=== PATIENT | female | born 1990 | race Caucasian/White ===

== ENCOUNTER 2017-04-19 13:33 | Emergency (ER) | payer OTHER ==
[~2017-04-19] VITALS: Ht 172.7 cm; Wt 63.6 kg
[~2017-04-19 13:33] MED LIST: MOTR200T44 PO; PRENTAB43 PO; TYLE500T78 PO; ZOFR4SOL PO
[2017-04-19 13:39] VITALS: BP 162/96
[2017-04-19] MEDS ORDERED: PROAAER10 INH (16:13)
[2017-04-19] MEDS ORDERED: FLON1SPR (16:13)
[2017-04-19] MEDS ORDERED: DIFL150T PO (16:13)
[2017-04-19] MEDS ORDERED: CEFD300CAP FT (16:14)
== END 2017-04-19 16:23 | disposition home or self-care (01) ==
LOC: M ED 13:33
DX: J01.90 Acute sinusitis, unspecified (principal); J20.9 Acute bronchitis, unspecified; J45.909 Unspecified asthma, uncomplicated; Z79.899 Other long term (current) drug therapy; Z88.0 Allergy status to penicillin; Z88.8 Allergy status to other drugs, medicaments and biological substances

== ENCOUNTER → 2017-06-05 | Outpatient (CLI) | payer OTHER | LOC: M CARPUL 12:47 | DX: R06.02 Shortness of breath (principal) | CPT/HCPCS: 94010 ==

== ENCOUNTER 2017-12-05 18:07 | Outpatient (CLI) | payer OTHER | END 2017-12-05 20:00 | disposition home or self-care (01) | LOC: M LDO 18:07 | DX: O26.893 Other specified pregnancy related conditions, third trimester (principal); Z3A.33 33 weeks gestation of pregnancy; N89.8 Other specified noninflammatory disorders of vagina | CPT/HCPCS: 59025 ==

== ENCOUNTER 2017-12-23 17:36 | Outpatient (CLI) | payer OTHER | END 2017-12-23 18:34 | disposition home or self-care (01) | LOC: M LDO 17:36 | DX: O47.03 False labor before 37 completed weeks of gestation, third trimester (principal); Z3A.35 35 weeks gestation of pregnancy | CPT/HCPCS: 59025 ==

== ENCOUNTER 2017-12-25 09:40 | Outpatient (CLI) | payer OTHER ==
[2017-12-25] MEDS ORDERED: LR 1,000 ML IV (10:30)
[2017-12-25] MEDS: BETAMETHASONE SOLUSPAN 6MG/ML INJ 5ML (J0702) IM (10:53)
[2017-12-25] MEDS: LR 800 ML IV (10:59)
== END 2017-12-25 16:20 | disposition home or self-care (01) ==
LOC: M LDO 09:40
DX: O26.893 Other specified pregnancy related conditions, third trimester (principal); N89.8 Other specified noninflammatory disorders of vagina; O99.53 Diseases of the respiratory system complicating the puerperium; J45.901 Unspecified asthma with (acute) exacerbation; O99.825 Streptococcus B carrier state complicating the puerperium; O99.820 Streptococcus B carrier state complicating pregnancy; O35.1XX1 Maternal care for (suspected) chromosomal abnormality in fetus, fetus 1; Q07.00 Arnold-Chiari syndrome without spina bifida or hydrocephalus; O62.3 Precipitate labor; Z3A.35 35 weeks gestation of pregnancy
CPT/HCPCS: J0702

== ENCOUNTER 2017-12-26 11:15 | Outpatient (CLI) | payer OTHER ==
[2017-12-26] MEDS: BETAMETHASONE SOLUSPAN 6MG/ML INJ 5ML (J0702) IM (11:55)
== END 2017-12-26 12:05 | disposition home or self-care (01) ==
LOC: M LDO 11:15
DX: O47.03 False labor before 37 completed weeks of gestation, third trimester (principal); Z3A.36 36 weeks gestation of pregnancy
CPT/HCPCS: J0702

== ENCOUNTER 2017-12-29 05:16 | Inpatient (IN) | payer OTHER ==
[2017-12-29] MEDS: LACTATED RINGER'S 1000 ML IV (07:14)
[2017-12-29] MEDS: VANCOMYCIN HCL 1,000 MG, VIAL MATE ADAPTER 1 EACH in D5W 250 ML IV (07:14)
[2017-12-29 07:31] LABS: HEMATOCRIT 40.1 % (36.0-47.0); HEMOGLOBIN 13.7 g/dl (12.0-15.5); MEAN CORPUSCULAR HEMOGLOBIN 28.2 pg (27.0-33.0); MEAN CORPUSCULAR HGB CONC 34.2 g/dl (32.0-36.5); MEAN CORPUSCULAR VOLUME 82.5 fl (80.0-96.0); PLATELET COUNT, AUTOMATED 408 10^3/uL (150-450); RED BLOOD COUNT 4.86 10^6/uL (4.00-5.40); RED CELL DISTRIBUTION WIDTH 12.8 % (11.5-14.5); WHITE BLOOD COUNT 10.1 10^3/uL (4.0-10.0)
[2017-12-29] MEDS: OXYTOCIN DRIP 30 UNITS in APPROPRIATE DILUENT 1 EA IV ×2 (08:08→16:30)
[2017-12-29 08:45] LABS: HBSAG L&D NEGATIVE (NEGATIVE)
[2017-12-29] MEDS: LR 1,000 ML IV (11:22)
[2017-12-29] MEDS ORDERED: FENTANYL 2MCG/ML ROPIVACAINE 0.2% IN 0.9% NACL 200ML IVBAG As Ordered (15:39)
[2017-12-29] MEDS ORDERED: RHOGAM 300 MCG (1500 IU) INJ (J2790) IM (16:30)
[2017-12-29] MEDS ORDERED: DIBUCAINE 1% OINTMENT 30GM TOP (16:30)
[2017-12-29] MEDS ORDERED: REFRIGERATOR IV KEYS XX (16:30)
[2017-12-29] MEDS ORDERED: ACETAMINOPHEN TAB 650MG DOSE (2X325MG) PO (16:30)
[2017-12-29] MEDS ORDERED: EPIDURAL/PCA KEYS XX (16:30)
[2017-12-29] MEDS ORDERED: MEASLES,MUMPS,RUBELLA VACCINE INJ (MMR-II) (90707) SC (16:30)
[2017-12-29] MEDS: FENTANYL/ROPIVACAINE/NACL BAG 200 ML EPIDURAL (16:30)
[2017-12-29] MEDS ORDERED: EPIDURAL COMMENT XX (16:30)
[2017-12-29] MEDS ORDERED: NALOXONE INJ 0.4 MG/1 ML VIAL (J2310) IV (16:30)
[2017-12-29] MEDS ORDERED: METOCLOPRAMIDE INJ 10MG/2ML VIAL (J2765) IV (16:30)
[2017-12-29] MEDS ORDERED: diphenhydrAMINE INJ 50MG/ML VIAL (J1200) IV (16:30)
[2017-12-29] MEDS ORDERED: ONDANSETRON 4MG/2ML VIAL (J2405) IV (16:30)
[2017-12-29] MEDS: IBUPROFEN 800 MG TAB PO (16:41)
[2017-12-29] MEDS: DOCUSATE SODIUM 100 MG CAP PO (20:39)
[2017-12-30] MEDS: PRENATAL VITAMINS CHEWABLE TABLET PO (09:18)
[2017-12-30] MEDS: DOCUSATE SODIUM 100 MG CAP PO (09:18)
== END 2017-12-30 12:00 | disposition home or self-care (01) | DRG 775 ==
LOC: M LDO 05:16 → M LDI 06:57 → M OBS 17:54
PROVIDERS: Obstetrics & Gynecology
PROC: 10E0XZZ Delivery of Products of Conception, External Approach (ICD-10-PCS; principal; 2017-12-29)
DX: O32.6XX0 Maternal care for compound presentation, not applicable or unspecified (principal); O99.824 Streptococcus B carrier state complicating childbirth; O69.81X0 Labor and delivery complicated by cord around neck, without compression, not applicable or unspecified; O69.2XX0 Labor and delivery complicated by other cord entanglement, with compression, not applicable or unspecified; Z3A.36 36 weeks gestation of pregnancy; Z37.0 Single live birth

== ENCOUNTER → 2018-09-02 | Outpatient (REF) | payer OTHER ==
[~2018-09-02] MED LIST changes: +CEFD300CAP FT; +COLA100C5 PO; +DIFL150T PO; +FLON1SPR; +IBUP-1114 PO; +MAPA500T2 PO; +PRENTAB9 PO; +PROAAER10 INH
== END ==
LOC: M SFHCLERA 10:52
PROVIDERS: ATTEND Physician Assistant
DX: R50.9 Fever, unspecified (principal)

== ENCOUNTER 2018-12-11 07:37 | Emergency (ER) | payer OTHER ==
[~2018-12-11] VITALS: Ht 172.7 cm; Wt 67.8 kg
[2018-12-11 07:37] VITALS: BP 156/98
[2018-12-11] MEDS ORDERED: ERYT1OIN26 OP (08:40)
== END 2018-12-11 09:04 | disposition home or self-care (01) ==
LOC: M ED 07:37
DX: H10.9 Unspecified conjunctivitis (principal); Z88.8 Allergy status to other drugs, medicaments and biological substances; Z88.0 Allergy status to penicillin

== ENCOUNTER 2019-03-31 09:22 | Emergency (ER) | payer OTHER ==
[~2019-03-31] VITALS: Ht 172.7 cm; Wt 67.1 kg
[~2019-03-31 09:22] MED LIST changes: +ERYT1OIN26 OP
[2019-03-31 10:23] LABS: BASO # 0.1 10^3/uL (0.0-0.2); BASO % 0.6 % (0.0-1.0); EOS # 0.1 10^3/uL (0.0-0.5); EOS % 1.4 % (0.0-3.0); HEMATOCRIT 40.4 % (36.0-47.0); HEMOGLOBIN 13.6 g/dl (12.0-15.5); LYMPH # 2.1 10^3/uL (1.5-5.0); LYMPH % 26.2 % (24.0-44.0); MEAN CORPUSCULAR HEMOGLOBIN 29.1 pg (27.0-33.0); MEAN CORPUSCULAR HGB CONC 33.7 g/dl (32.0-36.5); MEAN CORPUSCULAR VOLUME 86.5 fl (80.0-96.0); MONO # 0.4 10^3/uL (0.0-0.8); MONO % 5.5 % (0.0-5.0); NEUTROPHILS # 5.3 10^3/uL (1.5-8.5); NEUTROPHILS % 65.9 % (36.0-66.0); PLATELET COUNT, AUTOMATED 402 10^3/uL (150-450); RED BLOOD COUNT 4.67 10^6/uL (4.00-5.40)
--- NOTE | 2019-03-31 11:23 | REP ---
Clinical: Vaginal bleeding for dating and viability. Technique: Transabdominal first trimester obstetrical ultrasound with color Doppler evaluation. Findings: A single live early intrauterine is identified. Gestational sac with yolk sac and pole noted. CRL of 6 mm corresponds to 6 weeks 3 days gestational age with estimated date of delivery 11/21/2019. heart rate equals 128 beats per minute. No gross abnormalities are identified. Left ovarian cyst compatible with corpus luteum. Impression: 1. Single live intrauterine at 6 weeks 3 days gestational age. 2. No gross abnormalities are identified. 3. Complete anatomical assessment should be performed at 19-20 weeks. Electronically Signed by Norm Gottlieb MD 03/31/2019 11:14 A
[2019-03-31 11:53] LABS: CHLAMYDIA DNA AMPLIFICATION NEGATIVE (NEGATIVE); GC DNA AMPLIFICATION NEGATIVE (NEGATIVE)
[2019-03-31] MEDS ORDERED: PREN29TA4 PO (12:06)
[2019-03-31 12:14] VITALS: BP 100/77
[2019-03-31 13:25] LABS: CHLAMYDIA DNA AMPLIFICATION NEGATIVE (NEGATIVE); GC DNA AMPLIFICATION NEGATIVE (NEGATIVE)
== END 2019-03-31 12:31 | disposition home or self-care (01) ==
LOC: M ED 09:22
DX: O26.891 Other specified pregnancy related conditions, first trimester (principal); R10.2 Pelvic and perineal pain; Z3A.01 Less than 8 weeks gestation of pregnancy; Z88.0 Allergy status to penicillin

== ENCOUNTER 2019-06-15 17:46 | Inpatient (IN) | payer OTHER ==
[~2019-06-15] VITALS: Ht 172.7 cm; Wt 63.6 kg
[~2019-06-15 17:46] MED LIST changes: +PREN29TA4 PO
[2019-06-15 18:37] LABS: BASO % 0.3 % (0.0-1.0); EOS # 0.1 10^3/uL (0.0-0.5); EOS % 0.5 % (0.0-3.0); HEMATOCRIT 34.5 % (36.0-47.0); LYMPH # 2.5 10^3/uL (1.5-5.0); MEAN CORPUSCULAR HGB CONC 34.8 g/dl (32.0-36.5); MEAN CORPUSCULAR VOLUME 83.3 fl (80.0-96.0); MONO # 0.7 10^3/uL (0.0-0.8); MONO % 4.2 % (0.0-5.0); NEUTROPHILS # 12.3 10^3/uL (1.5-8.5); NEUTROPHILS % 78.3 % (36.0-66.0); PLATELET COUNT, AUTOMATED 345 10^3/uL (150-450); RED BLOOD COUNT 4.14 10^6/uL (4.00-5.40); WHITE BLOOD COUNT 15.7 10^3/uL (4.0-10.0)
[2019-06-15] MEDS ORDERED: PREN29TA4 PO (19:15)
[2019-06-15 19:36] LABS: ALBUMIN 2.9 GM/DL (3.2-5.2); ALT/SGPT 13 U/L (12-78); BILIRUBIN,DIRECT < 0.1 MG/DL (0.0-0.2); BILIRUBIN,TOTAL 0.2 MG/DL (0.2-1.0); BLOOD UREA NITROGEN 5 MG/DL (7-18); CALCIUM LEVEL 8.4 MG/DL (8.5-10.1); CARBON DIOXIDE LEVEL 26 MEQ/L (21-32); CHLORIDE LEVEL 104 MEQ/L (98-107); CREATININE FOR GFR 0.55 MG/DL (0.55-1.30); GLOMERULAR FILTRATION RATE > 60.0 (>60); GLUCOSE, FASTING 88 MG/DL (70-100); HCG, SERUM QUANTITATIVE 49424 MIU/ML; POTASSIUM SERUM 3.4 MEQ/L (3.5-5.1); SODIUM LEVEL 139 MEQ/L (136-145); TOTAL PROTEIN 6.3 GM/DL (6.4-8.2)
--- NOTE | 2019-06-15 19:44 | REPVR ---
PROCEDURE INFORMATION: Exam: US , Limited Exam date and time: 06/15/2019 6:46 PM Age: 28 years old Clinical indication: Lmp or gestational age (in weeks): 17wks; Leakage of amniotic fluid; TECHNIQUE: Imaging protocol: Real-time ultrasound of the maternal uterus with image documentation. Exam focused on the clinical indication. COMPARISON: DC - 1ST TRIMESTER US 03/31/2019 11:03:54 AM FINDINGS: GESTATION: Gestation: There is a single live intrauterine . Heart rate: 168 bpm Presentation: Breech Placenta: The location of the placenta is anterior and above the lower uterine segment. Amniotic fluid: The amniotic fluid index is 1.1 cm, which is abnormally decreased. DOPPLER: Umbilical artery Doppler: The umbilical arterial spectral waveform is normal in appearance with a peak systolic velocity of 25.8 cm/s, end diastolic velocity of 9.2 cm/s, resistive index of 0.64, and systolic velocity to diastolic velocity ratio of 2.8. MATERNAL: Cervix: Fluid is seen in the endocervical canal and around the external os of the cervix. The cervix measures 3.3 cm in length and is closed. IMPRESSION: Single live intrauterine with a breech presentation and severe oligohydramnios (DAE = 1.1 cm). Electronically signed by: Aime Barakat On 06/15/2019 19:44:13 PM
[2019-06-15] MEDS ORDERED: ACETAMINOPHEN 325 MG TAB As Ordered ONE (19:50)
[2019-06-15] MEDS ORDERED: ACETAMINOPHEN TAB 650MG DOSE (2X325MG) PO ONE (20:00)
[2019-06-15 21:19] VITALS: BP 114/76
--- NOTE | 2019-06-16 01:15 | HPEPDOC ---
Obstetrical History & Physical General Date of Admission Jun 15, 2019 at 19:48 History of Present Illness Radha is a 28yo with SIUP at 17w6d by lmp who presented to the ED the evening of 06/15 for loss of fluid from the vagina at 1700. She states that it felt like her water broke. She notes that she was seen at [facility] yesterday for severe leg cramps and she was found to be hypokalemic and given a potassium drink. She had some mucousy discharge earlier in the day and lower abdominal cramping. Other than that, she has felt well. No fevers/chills/nausea/vomiting/dysuria. Chief Complaint: LOF, pre-term Information Provided By: Patient Care Care: Good Care Dating Final EDC: Nov 20, 2019 Final EDC by: LMP Antepartum Course Diagnos(e)s History of prior pre-term delivery at 36w5d, declined [facility] Past Medical History Past Obstetrical History : Past Obstetrical History: Multigravida (History of two term svds and one 36w5d . 1 sab.) [employer] History: No pertinent history Past Medical History Medical History benign Surgical History: Appendectomy Social History Marital Status: Family situation: Spouse/partner home Psychosocial History: No pertinent psych hx * Smoker: non-smoker Alcohol: Denies Drugs: denies Allergies Coded Allergies: Penicillins (Verified Allergy, Severe, rash and swelling, 06/15/19) Medications Scheduled Prenat 115/Iron Fum/Folic/Dss ( 19 Tablet) 1 Each Tablet, 1 TAB PO DAILY Physical Examination Physical Examination GENERAL: Alert and oriented times three. ABDOMEN: Gravid and non-tender to touch. EXTREMITIES: No edema of BLE SSE performed by Dr. Bangura in the ED on presentation- he reports observing clear fluid pooled in the vagina that immediately turned nitrazine blue, no vaginal bleeding, cervix visually closed and high Vital Signs/I&O Vital Signs Date Time Temp Pulse Resp B/P (MAP) Pulse Ox O2 Delivery O2 Flow Rate FiO2 06/15/19 21:19 98.7 67 18 114/76 (89) 06/15/19 20:33 97 06/15/19 17:47 Room Air Laboratory Data 24H LABS Laboratory Tests 2 06/15/19 18:23: Immature Granulocyte % (Auto) 0.7, Neutrophils (%) (Auto) 78.3H, Lymphocytes (%) (Auto) 16.0L, Monocytes (%) (Auto) 4.2, Eosinophils (%) (Auto) 0.5, Basophils (%) (Auto) 0.3, Neutrophils # (Auto) 12.3H, Lymphocytes # (Auto) 2.5, Monocytes # (Auto) 0.7, Eosinophils # (Auto) 0.1, Basophils # (Auto) 0.0, Nucleated Red Blood Cells % (auto) 0.0, Anion Gap 9, Glomerular Filtration Rate > 60.0, Calcium Level 8.4L, Total Bilirubin 0.2, Direct Bilirubin < 0.1, Aspartate Amino Transf (AST/SGOT) 14, Alanine Aminotransferase (ALT/SGPT) 13, Alkaline Phosphatase 77, Total Protein 6.3L, Albumin 2.9L, Albumin/Globulin Ratio 0.85L, Human Chorionic Gonadotropin, Quant [id number] CBC/BMP Laboratory Tests 06/15/19 18:23 Pertinent Laboratoy Data Blood Type: A+ RBC Antibody Screen: Negative Other Ultrasounds TVUS 06/25/2019 FINDINGS: GESTATION: Gestation: There is a single live intrauterine . Heart rate: 168 bpm Presentation: Breech Placenta: The location of the placenta is anterior and above the lower uterine segment. Amniotic fluid: The amniotic fluid index is 1.1 cm, which is abnormally decreased. DOPPLER: Umbilical artery Doppler: The umbilical arterial spectral waveform is normal in appearance with a peak systolic velocity of 25.8 cm/s, end diastolic velocity of 9.2 cm/s, resistive index of 0.64, and systolic velocity to diastolic velocity ratio of 2.8. MATERNAL: Cervix: Fluid is seen in the endocervical canal and around the external os of the cervix. The cervix measures 3.3 cm in length and is closed. IMPRESSION: Single live intrauterine with a breech presentation and severe oligohydramnios (DAE = 1.1 cm). Assessment/Plan Assessment Radha is a 28yo with SIUP at 17w6d by lmp with pre-viable PPROM. Posit rosario nitrazine, pooling of clear fluid in the vagina, and severe oligohydramnios noted on ultrasound. Fetus is breech and has +FCA. Vitals wnl, otherwise benign exam. No evidence of infection. No vaginal bleeding. Patient is not in labor, cervical length > 3cm. Rh positive. Plan I discussed the diagnosis of pre-viable PPROM and prognosis with Radha at length. She was extremely tearful and had many questions. I reassured her that this is not related to anything that she did. We discussed the possibility of low-lying undetectable infection as cause. I explained that since her membranes are ruptured, she will most likely progress into labor. She understands that with rupture of membranes, the fetus will no longer be able to gain lung maturity and that this is not compatible with life. I discussed that since there is still a heart rate, we cannot proceed with induction of labor per [employer] regulations. It may be possible for her to seek care in a facility where they would induce her regardless, but this would likely come with an [id number] cost to the patient. However, if she develops evidence of infection or life- threatening bleeding, we would at that point pursue IOL. Or, if at some point there is absent cardiac activity, we could then proceed with IOL. At this point in time, she is comfortable with my recommendation for inpatient observation with expectant management. Diet: regular Vitals q4hr CBC qam Saline lock IV Clergy consult if patient desires If no progression into labor overnight, will possibly move patient to antepartum milan in the morning MD Shruthi Luke Katrina D MD Jun 16, 2019 00:41
[2019-06-16 03:56] VITALS: BP 94/53
[2019-06-16 08:05] VITALS: BP 110/73
[2019-06-16 12:03] VITALS: BP 118/69
[2019-06-16] MEDS: LR 1,000 ML IV SCH ×2 (13:53→21:45)
[2019-06-16 15:48] VITALS: BP 99/54
[2019-06-16 15:49] VITALS: BP 83/49
[2019-06-16 15:51] VITALS: BP 102/56
[2019-06-16] MEDS: ACETAMINOPHEN TAB 650MG DOSE (2X325MG) PO PRN (18:51)
--- NOTE | 2019-06-16 21:31 | IPN ---
DATE: 06/16/2019 This lady is a 28-year-old, 5, para 2, L3 who had spontaneous rupture of membranes at 17 weeks and 6 days. She was not having any contractions and no vaginal bleeding but she occasionally had intermittent severe leg cramps. She was found to be hypokalemic and given potassium. When reviewing here, she was found to have documented spontaneous rupture of membranes, afebrile. Her blood pressure 114/76, respirations 18, pulse 67, temperature is 98.7. Her CBC indicates a white count of 15.7, hemoglobin 12.0, hematocrit 34.5. Platelets were normal at 345. The plan of management at the present time was to be conservative. heart is present. She was afebrile. White count was within normal limits for a patient. In reviewing this patient's history with the patient, we established that there was a heart, she was having some bloody discharge which was probably cervical dilatation related, her temperature was 98.3, blood pressure 102/56 and pulse was 69. Lab values were ordered for tomorrow morning. Ultrasound history was a live IUP in breech presentation with oligohydramnios with an DAE of 1.1. Placenta was anterior and above the lower segment. Urine clean catch is pending. We had a lengthy discussion with the patient regarding ongoing care. She understands that while there is a heart present we are unable to terminate the . However, should she have an elevated white count, a fever, or suggestions of chorioamnionitis, then we can implement medical indications for assisting in vaginal delivery. We discussed the social issues of her three children at home and what to say to the 5-year-old in order to relieve the burden on the 5-year-old that it is her fault. We also highly recommended that she move to a area where she can be in a more quiet zone with less activity then in labor and delivery. Also, her children can come and visit and see that mother is not abandoning them but is in hospital for medical issues. In regards to disposition of the fetus at delivery, the options available are to allow the hospital to dispose of the remains or she can call a private home and make arrangements, although these are long-term. Presently, she is afebrile, asymptomatic. She has not done anything in the last 12-24 hours and it is safe to transfer her to and monitor her vital signs in a timely fashion. Our trigger point is an elevated temperature and elevated white count. She has a CBC booked for 0600 hours tomorrow morning. The patient and expressed understanding of the plan of care. 40 minutes. All questions were answered.
[2019-06-17] VITALS: BP 91/54
[2019-06-17 06:30] VITALS: BP 112/62
[2019-06-17 07:50] LABS: HEMATOCRIT 35.5 % (36.0-47.0); HEMOGLOBIN 11.8 g/dl (12.0-15.5); MEAN CORPUSCULAR HEMOGLOBIN 28.4 pg (27.0-33.0); MEAN CORPUSCULAR HGB CONC 33.2 g/dl (32.0-36.5); MEAN CORPUSCULAR VOLUME 85.3 fl (80.0-96.0); PLATELET COUNT, AUTOMATED 316 10^3/uL (150-450); RED BLOOD COUNT 4.16 10^6/uL (4.00-5.40); WHITE BLOOD COUNT 18.4 10^3/uL (4.0-10.0)
--- NOTE | 2019-06-17 11:34 | IPN ---
DATE: 06/17/2019 This lady was admitted with a history of spontaneous rupture of membranes at 16 weeks and 5 days. She had a workup with an ultrasound showing that there was oligohydramnios, breech presentation. heart was present. She had a white count at 15.5 and normal temperature, normal blood pressures. This morning she is feeling well. She has some discharge. No evidence of active contractions. She is having a few cramps, afebrile and normotensive at the present time. Again we reviewed the plan of care, offered her to go home. However, she is concerned about having three children at home and inability to cope emotionally at the present time with a potential loss and the three children at home. Also she is concerned about what size the baby would be and we iterated to her that it is going to be less than 500 grams probably somewhere in 250 range and would be in effect similar to having a spontaneous miscarriage. In any case the patient seems to be more comfortable waiting it out here and again re-iterated unless she has a fever, elevated white count and/or no heart and we will have to comply with conservative management at the present time. The patient appears satisfied with that, expressed understanding of the plan of care.
[2019-06-17] MEDS: ACETAMINOPHEN TAB 650MG DOSE (2X325MG) PO PRN ×2 (14:30→22:48)
[2019-06-17 17:00] VITALS: BP 100/61
[2019-06-17 22:15] VITALS: BP 96/53
[2019-06-18] VITALS (11 sets, daily range): BP systolic 84–105; BP diastolic 49–60
[2019-06-18 06:37] LABS: HEMATOCRIT 34.6 % (36.0-47.0); HEMOGLOBIN 11.8 g/dl (12.0-15.5); MEAN CORPUSCULAR HEMOGLOBIN 28.8 pg (27.0-33.0); MEAN CORPUSCULAR HGB CONC 34.1 g/dl (32.0-36.5); MEAN CORPUSCULAR VOLUME 84.4 fl (80.0-96.0); PLATELET COUNT, AUTOMATED 318 10^3/uL (150-450); WHITE BLOOD COUNT 16.7 10^3/uL (4.0-10.0)
--- NOTE | 2019-06-18 06:48 | IPNPDOC ---
Text Note Date of Service The patient was seen on 06/18/19. NOTE patient is a 28yo with SIUP at 18+1w gestation admitted for PPROM HD #3. She had chills and sweats overnight. She reports feeling ache and cramping. Not feeling well in general. Continues to feel LOF. denies vaginal bleeding. patient had tylenol when she had fever. vitals: reviewed, hypotensive, HR: 60's-80's, Tmax: 100.4 at 22:50 laying in bed, NAD, aox4 cta s w/r/r s1s2 s m/g/c abd: nd, soft, mild tenderness to palpation over fundus le: no edema/erythema/tenderness skin warm to touch taus: SIUP, no fluids present, hr: 140's cbc: pending a/p patient is @ 18+1wks with PPROM showing s/s of infection. get CBC this AM. Discussed with patient that she is showing s/s of infection. fetus continues to have heart beat. It is unlikely that the amniotic sac closes over and allows for a viable to progress. At this point, due showing s/s of infection I recommend moving forward with induction of labor for chorioamnionitis. Patient expresses understanding and agrees. Transfer patient to L&D for induction of labor. Audi MARRERO, I+O VSAudi, I+O Laboratory Tests 06/17/19 07:03 06/18/19 06:16 Vital Signs Date Time Temp Pulse Resp B/P (MAP) Pulse Ox O2 Delivery O2 Flow Rate FiO2 06/18/19 05:30 99.9 81 18 97/53 (68) 97 Room Air NIKA JOAQUIN DO Jun 18, 2019 06:48
[2019-06-18 06:58] LABS: BLOOD UREA NITROGEN 3 MG/DL (7-18); CALCIUM LEVEL 8.6 MG/DL (8.5-10.1); CARBON DIOXIDE LEVEL 22 MEQ/L (21-32); CHLORIDE LEVEL 107 MEQ/L (98-107); CREATININE FOR GFR 0.48 MG/DL (0.55-1.30); GLOMERULAR FILTRATION RATE > 60.0 (>60); GLUCOSE, FASTING 76 MG/DL (70-100); POTASSIUM SERUM 3.8 MEQ/L (3.5-5.1); SODIUM LEVEL 138 MEQ/L (136-145)
[2019-06-18] MEDS ORDERED: VANCOMYCIN HCL 1,000 MG in IV FLUID PLACE HOLDER 1 EA IV SCH (08:00)
[2019-06-18 08:12] LABS: BASO % 0.2 % (0.0-1.0); EOS # 0.1 10^3/uL (0.0-0.5); EOS % 0.5 % (0.0-3.0); LYMPH # 1.6 10^3/uL (1.5-5.0); LYMPH % 9.5 % (24.0-44.0); MONO # 0.9 10^3/uL (0.0-0.8); MONO % 5.2 % (0.0-5.0); NEUTROPHILS # 14.3 10^3/uL (1.5-8.5); NEUTROPHILS % 84.3 % (36.0-66.0)
[2019-06-18] MEDS ORDERED: LACTATED RINGER'S 1000 ML IV STA (08:12)
[2019-06-18] MEDS ORDERED: miSOPROStol 50 MCG 1/2 TAB (S0191) PV ONE ×3 (09:00→21:45)
[2019-06-18] MEDS: LR 1,000 ML IV SCH ×2 (09:00→19:10)
[2019-06-18] MEDS: GENTAMICIN IV SCH (09:11)
[2019-06-18] MEDS: D5W IV SCH (09:11)
--- NOTE | 2019-06-18 09:12 | IPNPDOC ---
Text Note Date of Service The patient was seen on 06/18/19. NOTE I assumed care of Radha at 0730 this morning. In brief, she is a 28yo with SIUP at 18w1d admitted for pre-viable PPROM, HD #3. Last night she developed a fever to 100.4F that was treated with tylenol. She had the sensation of chills and body aches relieved by tylenol for a while, but now coming back. She also has had nausea. Right after she was admitted she pass ed some blood clots and had scant bleeding, but that stopped and her discharge yesterday was pink to brown tinged but rather copious and more "mucousy" than thinly liquid. Dr. Kumar made the recommendation this morning for proceeding with induction secondary to chorioamnionitis, which he discussed with Radha and she was moved from the milan to L&D in anticipation of proceeding with induction. Vitals: bp's 90's/50's, HR: 60's-80's, Tmax: 100.4F at 22:50, last temp 99.9F General: laying in bed, NAD, A&O x4 Abdomen: non-distended, soft, fundal tenderness present (no rebound/guarding) BLE: no edema/erythema/tenderness TAUS (performed by Dr. Kumar this morning): SIUP, no fluids present, hr: 140's Labs: Urine culture shows >100,000 strep midas WBC 16.7, H/H 11.8/34.6, plt 318 Radiology: TAUS 06/15/2019 FINDINGS: GESTATION: Gestation: There is a single live intrauterine . Heart rate: 168 bpm Presentation: Breech Placenta: The location of the placenta is anterior and above the lower uterine segment. Amniotic fluid: The amniotic fluid index is 1.1 cm, which is abnormally decreased. DOPPLER: Umbilical artery Doppler: The umbilical arterial spectral waveform is normal in appearance with a peak systolic velocity of 25.8 cm/s, end diastolic velocity of 9.2 cm/s, resistive index of 0.64, and systolic velocity to diastolic velocity ratio of 2.8. MATERNAL: Cervix: Fluid is seen in the endocervical canal and around the external os of the cervix. The cervix measures 3.3 cm in length and is closed. IMPRESSION: Single live intrauterine with a breech presentation and severe oligohydramnios (DAE = 1.1 cm). Assessment: Radha is a 28yo with SIUP at 18w1d admitted for pre-viable PPROM, HD #3 with development of chorioamnionitis based on fever, elevated WBC count, fundal tenderness and patient's subjective feeling of chills and body aches. She also incidentally has a UTI with strep midas, which may have played a part in the etiology of her PPROM. Doptones still present, fetus has been breech, no fluid noted. PCN allergy. Plan: -Discussed fully the diagnosis of chorioamnionitis as well as UTI and recommendation for proceeding with induction as the only effective treatment for chorioamnionitis -Gentamicin IV 5mg/kg q24hr, vancomycin 1g IV q12hr which will treat both chorio and UTI -clear liquids -LR at 125ml/hr -plan to start with 50mcg cytotec PV and re-dose as needed -safe to proceed MD ELIDA Luke Fishbone, I+O Audi MARRERO I+O Laboratory Tests 06/18/19 06:16 06/18/19 06:17 Vital Signs Date Time Temp Pulse Resp B/P (MAP) Pulse Ox O2 Delivery O2 Flow Rate FiO2 06/18/19 05:30 99.9 81 18 97/53 (68) 97 Room Air Mitzy Hawkins MD Jun 18, 2019 09:12
[2019-06-18] MEDS ORDERED: PROMETHAZINE INJ 25 MG/ML VIAL (J2550) IV PRN (09:30)
[2019-06-18] MEDS ORDERED: BUTORPHANOL 2 MG/ML INJ (J0595) IV PRN (09:30)
--- NOTE | 2019-06-18 10:01 | IPNPDOC ---
Text Note Date of Service The patient was seen on 06/18/19. NOTE -first dose of cytotec- 50mcg cytotec placed PV. SCE closed/50/high, soft pt written for IV stadol/phenergan in the event that she wants something to address pain as things progress 1hr lying down, then patient can ambulate as she would like Safe to proceed Dr. Mitzy Hawkins MD VS,Auid, I+O VS, Audi, I+O Laboratory Tests 06/18/19 06:16 06/18/19 06:17 Vital Signs Date Time Temp Pulse Resp B/P (MAP) Pulse Ox O2 Delivery O2 Flow Rate FiO2 06/18/19 05:30 99.9 81 18 97/53 (68) 97 Room Air Mitzy Hawkins MD Jun 18, 2019 10:01
[2019-06-18] MEDS: VANCOMYCIN HCL 1,000 MG, VIAL MATE ADAPTER 1 EACH in D5W 250 ML IV SCH ×2 (10:19→22:02)
[2019-06-18] MEDS ORDERED: ACETAMINOPHEN 500 MG TAB PO PRN (12:15)
--- NOTE | 2019-06-18 17:20 | IPNPDOC ---
Text Note Date of Service The patient was seen on 06/18/19. NOTE Intrapartum Note Radha is doing well, has only had some light cramping since placement of cytotec this morning. She had a temp of 101F mid-afternoon and was given 1g tylenol which resolved the fever. No heavy bleeding. Vitals wnl except for temp of 101F at 12:09p SCE: closed/50/high, soft. 100mcg cytotec placed PV. Will continue to closely monitor Pt is written for stadol/phenergan prn for pain should she want medication Continue vanc/gent Will plan to re-check in 4hr or earlier as indicated Dr. Mitzy Hawkins MD VS,Audi, I+O VS, Audi, I+O Laboratory Tests 06/18/19 06:16 06/18/19 06:17 Vital Signs Date Time Temp Pulse Resp B/P (MAP) Pulse Ox O2 Delivery O2 Flow Rate FiO2 06/18/19 15:52 98.5 85 16 105/60 (75) Room Air 06/18/19 05:30 97 Mitzy Hawkins MD Jun 18, 2019 17:20
[2019-06-18] MEDS ORDERED: miSOPROStol 100 MCG TAB (S0191) As Ordered ONE (21:35)
--- NOTE | 2019-06-18 21:44 | IPNPDOC ---
Text Note Date of Service The patient was seen on 06/18/19. NOTE Intrapartum Note Radha is doing well, has some cramping after each dose of cytotec, but then dissipates. She had a temp of 101F mid-afternoon and was given 1g tylenol which resolved the fever. No fever since. No heavy bleeding. Vitals wnl, afebrile since having temp of 101F at 12:09p SCE: /high, soft. 100mcg cytotec placed PV. Will continue to closely monitor Pt is written for stadol/phenergan prn for pain should she want medication Continue vanc/gent Will plan to re-check in 4hr or earlier as indicated Dr. Mitzy Hawkins MD VS,Audi, I+O VS, Audi, I+O Laboratory Tests 06/18/19 06:16 06/18/19 06:17 Vital Signs Date Time Temp Pulse Resp B/P (MAP) Pulse Ox O2 Delivery O2 Flow Rate FiO2 06/18/19 17:09 98.4 65 16 99/55 (70) Room Air 06/18/19 05:30 97 Mitzy Hawkins MD Jun 18, 2019 21:44
[2019-06-19] VITALS (33 sets, daily range): BP systolic 71–142; BP diastolic 41–84
[2019-06-19] MEDS ORDERED: miSOPROStol 50 MCG 1/2 TAB (S0191) PV ONE (02:30)
--- NOTE | 2019-06-19 02:31 | IPNPDOC ---
Text Note Date of Service The patient was seen on 06/19/19. NOTE Intrapartum Note Radha is doing well, has some cramping after each dose of cytotec, but then dissipates. She had a temp of 101F mid-afternoon and was given 1g tylenol which resolved the fever. No fever since. No heavy bleeding. Vitals wnl, afebrile since having temp of 101F at 12:09p SCE: 150/high, soft. 200mcg cytotec placed PV. Will continue to closely monitor Pt is written for stadol/phenergan prn for pain should she want medication Continue vanc/gent Will plan to re-check in 4hr or earlier as indicated Dr. Mitzy Hawkins MD VS,Audi, I+O VS, Audi, I+O Laboratory Tests 06/18/19 06:16 06/18/19 06:17 Vital Signs Date Time Temp Pulse Resp B/P (MAP) Pulse Ox O2 Delivery O2 Flow Rate FiO2 06/18/19 17:09 98.4 65 16 99/55 (70) Room Air 06/18/19 05:30 97 I&O- Last 24 Hours up to 6 AM 06/19/19 06:00 Intake Total 3928 ml Balance 3928 ml Mitzy Hawkins MD Jun 19, 2019 02:31
[2019-06-19] MEDS: LR 1,000 ML IV SCH ×2 (02:57→08:58)
[2019-06-19] MEDS: GENTAMICIN IV SCH (08:57)
[2019-06-19] MEDS: D5W IV SCH (08:57)
[2019-06-19] MEDS: VANCOMYCIN HCL 1,000 MG, VIAL MATE ADAPTER 1 EACH in D5W 250 ML IV SCH ×2 (10:12→22:17)
[2019-06-19] MEDS ORDERED: miSOPROStol 200 MCG TAB (S0191) PO ONE (11:00)
[2019-06-19] MEDS ORDERED: OXYTOCIN 30 UNITS IN 0.9% NaCl 500ML IV BAG (J2590) As Ordered ONE (11:27)
[2019-06-19] MEDS ORDERED: propofoL 200 MG/20 ML VIAL As Ordered ONE (11:51)
[2019-06-19] MEDS ORDERED: LIDOCAINE 2% INJ 100 MG/5 ML SDV (FOR ANES.) As Ordered ONE (11:51)
[2019-06-19] MEDS ORDERED: ROCURONIUM BROMIDE 50 MG/5 ML VIAL As Ordered ONE (11:55)
[2019-06-19] MEDS ORDERED: fentaNYL 100 MCG/2 ML INJECTION (J3010) As Ordered ONE (11:56)
[2019-06-19] MEDS ORDERED: SUCCINYLCHOLINE 100 MG/5 ML SYRINGE (J0330) As Ordered ONE (12:04)
[2019-06-19] MEDS ORDERED: miSOPROStol 200 MCG TAB (S0191) As Ordered ONE (12:21)
[2019-06-19] MEDS ORDERED: ONDANSETRON 4MG/2ML VIAL (J2405) As Ordered ONE (12:26)
[2019-06-19] MEDS ORDERED: dexameTHASONE 4 MG/ML 1ML VIAL (J1100) As Ordered ONE (12:26)
[2019-06-19] MEDS ORDERED: KETOROLAC 60 MG/2 ML VIAL (J1885) As Ordered ONE (12:31)
[2019-06-19] MEDS ORDERED: METHYLERGONOVINE MALEATE 0.2 MG/ML VIAL (J2210) As Ordered ONE (12:33)
[2019-06-19] MEDS ORDERED: SUGAMMADEX SODIUM 500 MG/5 ML VIAL (BRIDION) As Ordered ONE (12:41)
[2019-06-19] MEDS ORDERED: OXYTOCIN DRIP 30 UNITS in IV 1 EA IV SCH (12:53)
[2019-06-19] MEDS ORDERED: IBUPROFEN 600 MG TAB PO PRN (13:00)
[2019-06-19] MEDS ORDERED: METHYLERGONOVINE MALEATE 0.2 MG TAB PO PRN (13:00)
[2019-06-19] MEDS ORDERED: RHOGAM 300 MCG (1500 IU) INJ (J2790) IM SCH (13:00)
[2019-06-19] MEDS ORDERED: IBUPROFEN 800 MG TAB PO PRN (13:00)
[2019-06-19] MEDS ORDERED: ACETAMINOPHEN 500 MG TAB PO PRN (13:00)
[2019-06-19] MEDS ORDERED: ACETAMINOPHEN TAB 650MG DOSE (2X325MG) PO PRN ×2 (13:00→13:45)
[2019-06-19] MEDS ORDERED: PERCOCET 5MG/325MG TAB PO PRN (13:15)
[2019-06-19] MEDS ORDERED: fentaNYL 100 MCG/2 ML INJECTION (J3010) IV PRN (13:15)
[2019-06-19] MEDS ORDERED: LR 1,000 ML IV SCH (13:15)
[2019-06-19] MEDS ORDERED: ONDANSETRON 4MG/2ML VIAL (J2405) IV PRN (13:15)
[2019-06-19] MEDS ORDERED: ACETAMINOPHEN TAB 650MG DOSE (2X325MG) As Ordered ONE (13:30)
[2019-06-19 16:42] LABS: HEMATOCRIT 28.7 % (36.0-47.0); MEAN CORPUSCULAR HEMOGLOBIN 28.6 pg (27.0-33.0); MEAN CORPUSCULAR HGB CONC 33.1 g/dl (32.0-36.5); MEAN CORPUSCULAR VOLUME 86.4 fl (80.0-96.0); PLATELET COUNT, AUTOMATED 319 10^3/uL (150-450); RED BLOOD COUNT 3.32 10^6/uL (4.00-5.40); WHITE BLOOD COUNT 21.6 10^3/uL (4.0-10.0)
[2019-06-19 16:43] LABS: HEMOGLOBIN 9.5 g/dl (12.0-15.5)
[2019-06-19] MEDS ORDERED: DESFLURANE 240 ML INHALANT As Ordered ONE (17:10)
[2019-06-19] MEDS ORDERED: SLF 3 ML SYR IV PRN (18:30)
[2019-06-19 19:27] LABS: HEMATOCRIT 26.5 % (36.0-47.0); HEMOGLOBIN 8.8 g/dl (12.0-15.5); MEAN CORPUSCULAR HEMOGLOBIN 29.2 pg (27.0-33.0); MEAN CORPUSCULAR HGB CONC 33.2 g/dl (32.0-36.5); PLATELET COUNT, AUTOMATED 292 10^3/uL (150-450); RED BLOOD COUNT 3.01 10^6/uL (4.00-5.40); WHITE BLOOD COUNT 18.4 10^3/uL (4.0-10.0)
--- NOTE | 2019-06-19 19:53 | IPN ---
DATE: 06/19/2019 at 2000 hours This lady had a spontaneous rupture of membranes of a 16-week gestation. Had 5 days with spontaneous rupture of membranes, elevated temperature, induced secondary to infection. Delivered fetus of 157 grams. Had a spontaneous uterine atony with a blood loss of 1100 mL. Was taken to the operating room (OR) for manual removal of the placenta. Had another 1000 mL of blood loss at that time. Had significant uterine atony requiring Cytotec, Methergine, Pitocin.. Eventually the uterus did contract down. She has had decreasing hemoglobin/hematocrit. At the present time she is afebrile. Her hemoglobin is 8.3, hematocrit 26.5. Platelets are normal, but she is a significantly symptomatic with dizziness, some tachycardia, and inability to walk around without some syncopal effect. We discussed the risks and benefits of blood transfusion, which included transfusion reaction, the small risk of acquiring a disease based on the blood products; however, the risk/benefit ratio his higher to the benefit than it is to the risk. The patient will require probably 2 units of packed cells. After discussing risks and benefits, expressing understanding, a 20-minute discussion, signed the consent form. We await 2 units of packed cells, which will be given slowly over 2 hours and repeat a complete blood count (CBC) 1 hour after that. Presently, patient is comfortable with the transition to 2 units of packed cells, and we will reassess her in several hours' time. As far as the uterus, it is well contracted, minimal bleeding, afebrile, and nontender.
[2019-06-19] MEDS: LOPERAMIDE 2 MG CAPLET PO PRN ×2 (21:40→22:10)
[2019-06-19] MEDS ORDERED: SLF 3 ML SYR IV SCH (22:00)
--- NOTE | 2019-06-19 22:15 | DN ---
DATE: 06/19/2019 DELIVERY NOTE This lady is 4, para 3 who was admitted with spontaneous rupture of membranes at 16 weeks 6 days five days ago, had subsequently been started on Cytotec because of spontaneous rupture of membranes and elevated temperature. She had been on vancomycin, gentamicin for an elevated temperature of 101 degrees. She did have an elevated white count. She had no foul lochia, and she eventually, after many lots of Cytotec, had a spontaneous precipitous delivery, vertex presenting of a stillborn male weighing 154 grams or 7 ounces. The cord was pulseless. We waited a significant period of time. However, the uterus is very atonic, she had lost approximately 1100 mL of blood at the time of delivery, and we placed a Mckeon catheter in the bladder draining clear urine and elected to take her to the operating room for manual removal of retained placenta and addressing the hemorrhage of 1100 mL. The patient expressed understanding of risk of benefits of the plan. The operating room (OR) was called and indicated an emergency procedure required and the patient was taken to the operating room on a stat basis. Presently, the patient is stable, blood pressure, pulse, and respirations are intact. Uterus is somewhat controlled with massage, and the patient tolerated the initial delivery without incident.
--- NOTE | 2019-06-19 23:39 | RO ---
DATE OF PROCEDURE: 06/19/2019 PREOPERATIVE NOTE: Retained placenta, hemorrhage, risk 2. POSTOPERATIVE DIAGNOSIS: Retained placenta, hemorrhage, risk 2, atonic uterus. ESTIMATED BLOOD LOSS PRESURGERY: 1100 mL. ESTIMATED BLOOD LOSS POST SURGERY: Additional 1000 mL. OPERATION PROPOSED: Manual removal and suction curettage. OPERATION PERFORMED: Manual removal and suction curettage. DESCRIPTION OF PROCEDURE: Under adequate anesthesia, prepped and draped in the lithotomy position, Mckeon catheter in the bladder draining clear urine, diuresed at 1000 mL prior to surgery, sequentials in place, antibiotics appropriately given on a every 12 to 24 hours basis. Weighted speculum vagina, the os was already dilated, and a single-tooth tenaculum placed on the anterior lip of the cervix. We digitally examined the patient, and with a large Ring forceps, removed the placenta which was pale. Previously, the cord had come off at delivery of the fetus and that was sent to pathology under separate cover. The placenta was sent to pathology under separate cover. Digital examination revealed the empty uterus. Uterus was very atonic. We put a sponge into the uterus, swept it out making sure that it was completely empty. We used a suction curettage as well. We used a #14 suction curette, still the uterus was atonic. The patient was given Pitocin 5 units IV push and 30 in the bag at 125 mL per hour. She was given Methergine 0.2 mg IM. She was given Cytotec 800 mg per rectum. Eventually, after vigorous massage the uterus did contract down to an appropriate size and bleeding was minimal. Evaluating, the anterior, posterior and lateral duarte were complete. The cervix was intact. The uterus was placed in anatomical position, now well contracted, and the patient was sent to recovery in good condition.
[2019-06-20 00:07] VITALS: BP 108/57
[2019-06-20 01:22] LABS: HEMATOCRIT 28.4 % (36.0-47.0); HEMOGLOBIN 9.7 g/dl (12.0-15.5); MEAN CORPUSCULAR HGB CONC 34.2 g/dl (32.0-36.5); MEAN CORPUSCULAR VOLUME 84.8 fl (80.0-96.0); PLATELET COUNT, AUTOMATED 255 10^3/uL (150-450); RED BLOOD COUNT 3.35 10^6/uL (4.00-5.40); WHITE BLOOD COUNT 16.3 10^3/uL (4.0-10.0)
[2019-06-20] MEDS ORDERED: IBUP80TA PO (02:47)
--- NOTE | 2019-06-20 14:52 | DSES ---
DATE OF ADMISSION: 06/15/2019 DATE OF DISCHARGE: 06/20/2019 This lady is a 28-year-old 5, para 2, abortio 1, who was at 17 weeks and 6 days, presented was on 06/15 with spontaneous rupture of membranes. There was no evidence of bleeding, contractions or discharge, other than the clear liqua. She went to [facility] and they found that she was hypokalemic, gave her some potassium and she did express to them about the mucusy discharge, however, they told to followup with her provider. Her final EDC by early ultrasound was November 20, 2019, last period was undescribed. PAST OBSTETRICAL HISTORY: She has had two term spontaneous vaginal deliveries, one at 36 and 5 weeks. She has had one spontaneous miscarriage. SURGICAL INTERVENTION: Appendectomy. ALLERGIES: She has allergies to PENICILLIN - rash and severe swelling. PHYSICAL EXAMINATION: On initial examination when she came in her blood pressure 114/76, respirations 18, pulse 67, temperature 98.7. Her lab results indicated that her hemoglobin was 12.0, hematocrit 34.5, platelets of 345, and her white count was elevated at 15.7. She is A positive. She had an ultrasound indicating a live IUP in breech presentation. heart rate 168 beats per minute. Placenta is anterior. It definitely defined a decreased abnormality with DAE of less than 1 cm. Cervical length was about 3.3 cm. The plan of care was with premature rupture of membranes, the prognosis is grim for the baby, however with a present heart rate, afebrile and no evidence of infection, that we would proceed with conservative management. Should there be an elevated white count, temperature or suggestion of chorioamnionitis, then indeed induction for delivery would be entertained. The patient was presently followed up for several days, and in the interim her white count on June 19 went up to 21.6 from 18.4. She had a left shift. She also had an elevated temperature of 100.4 and somewhere in the interval of 101, indicating that she now required aggressive management for delivery of this extremely premature infant. She was started prophylactically on vancomycin and gentamicin. She was given Cytotec multiple doses which essentially gave her a few cramps and a bit of discharge, but no obvious indication of active contractions for delivering this . On June 19, the dose of Cytotec was increased to 400 mg p.o. and the plan of care was to continue the antibiotics. Continue with 400 mcg of Cytotec every 3 hours until active labor or delivery. After just one dose of Cytotec she had some significant contractions and had a precipitous spontaneous delivery of a stillborn, weighing 157 grams, and vertex presenting. The placenta did not come away in the usual fashion and she had an extremely atonic uterus. After delivery of the she had a hemorrhage of 1100 mL and digital examination failed to produce a placenta therefore with Mckeon catheter in place, an emergency D C and EUA was performed in the main operating theater and there she had 1000 mL of blood loss, atonic uterus. Placenta was digitally removed and sent to pathology under separate cover. She continued to bleed and required massive doses of tocolytics in the form of Pitocin, Methergine, Cytotec and eventually the uterus contracted well down and the bleeding was controlled. Post delivery her hemoglobin dropped to 8.8 with a hematocrit of 26.5 and she was symptomatic. Therefore after detailed discussion. She was given 2 units of packed cells. A further evaluation of her hemoglobin/hematocrit after 2 units of packed cells 9.7, hematocrit 28.4, platelets 255 and she was feeling extremely better. She had requested to go home. She had been given prophylactic antibiotics up until discharge. Her side effect was that she had extreme diarrhea and may have been from the antibiotics or from the Cytotec. She was given Imodium which controlled her diarrhea. On discharge her hemoglobin was 9.7, hematocrit 28.4, platelets are 255. Her blood pressure on discharge was 108/57, respirations 18, temperature was 97.2 and her pulse was 62. She had completely stopped bleeding. She had some scant discharge. Her diarrhea had resolved. She was feeling much better. She was counseled regarding pelvic rest, precautions, to monitor her temperature and if there was increased fever or cramping to call immediately. She has a two week postop check with [facility] and then a 6-week check for routine evaluation of contraception. In summary we have a 16 and 7-week gestation with premature rupture of membranes, operative intervention because of elevated temperature, 2 units of packed cells transfused because of significant hemorrhage to 2200 mL, and stabilization for discharge. All questions were answered, a 40 minute discussion with the patient and her , expressed understanding of the plan of care.
== END 2019-06-20 03:18 | disposition home or self-care (01) | DRG 762 ==
LOC: M ED 17:46 → M ED INP 19:48 → M LDI 20:59 → M OBS 06-16 22:28 → M LDI 06-18 06:28
PROVIDERS: ADMIT Obstetrics & Gynecology; ATTEND Obstetrics & Gynecology
PROC: 3E0P7GC Introduction of Other Therapeutic Substance into Female Reproductive, Via Natural or Artificial Opening (ICD-10-PCS; 2019-06-18)
PROC: 10D17ZZ Extraction of Products of Conception, Retained, Via Natural or Artificial Opening (ICD-10-PCS; 2019-06-19)
PROC: 30233N1 Transfusion of Nonautologous Red Blood Cells into Peripheral Vein, Percutaneous Approach (ICD-10-PCS; 2019-06-19)
PROC: 10E0XZZ Delivery of Products of Conception, External Approach (ICD-10-PCS; principal; 2019-06-19 11:53)
DX: O42.012 Preterm premature rupture of membranes, onset of labor within 24 hours of rupture, second trimester (principal); Z37.1 Single stillbirth; O41.1220 Chorioamnionitis, second trimester, not applicable or unspecified; O23.42 Unspecified infection of urinary tract in pregnancy, second trimester; O72.0 Third-stage hemorrhage; Z3A.17 17 weeks gestation of pregnancy; O32.1XX0 Maternal care for breech presentation, not applicable or unspecified; B95.5 Unspecified streptococcus as the cause of diseases classified elsewhere; Z88.0 Allergy status to penicillin

== ENCOUNTER 2019-06-29 18:33 | Emergency (ER) | payer OTHER ==
[~2019-06-29] VITALS: Ht 172.7 cm; Wt 67.8 kg
[~2019-06-29 18:33] MED LIST changes: +IBUP80TA PO
[2019-06-29] MEDS ORDERED: [UNRECOGNIZED DRUG - REMARK] (18:46)
[2019-06-29] MEDS ORDERED: NS 1,000 ML IV ONE (20:15)
[2019-06-29 20:22] LABS: BASO # 0.1 10^3/uL (0.0-0.2); BASO % 0.7 % (0.0-1.0); EOS # 0.2 10^3/uL (0.0-0.5); EOS % 1.8 % (0.0-3.0); HEMATOCRIT 33.8 % (36.0-47.0); HEMOGLOBIN 10.8 g/dl (12.0-15.5); LYMPH # 3.2 10^3/uL (1.5-5.0); LYMPH % 39.3 % (24.0-44.0); MEAN CORPUSCULAR HEMOGLOBIN 28.5 pg (27.0-33.0); MEAN CORPUSCULAR VOLUME 89.2 fl (80.0-96.0); MONO # 0.4 10^3/uL (0.0-0.8); MONO % 4.8 % (0.0-5.0); NEUTROPHILS # 4.3 10^3/uL (1.5-8.5); PLATELET COUNT, AUTOMATED 502 10^3/uL (150-450); RED BLOOD COUNT 3.79 10^6/uL (4.00-5.40); WHITE BLOOD COUNT 8.2 10^3/uL (4.0-10.0)
[2019-06-29 20:47] LABS: ALT/SGPT 35 U/L (12-78); BILIRUBIN,DIRECT < 0.1 MG/DL (0.0-0.2); BILIRUBIN,TOTAL 0.2 MG/DL (0.2-1.0); LIPASE 201 U/L (73-393); TOTAL PROTEIN 6.7 GM/DL (6.4-8.2)
--- NOTE | 2019-06-29 21:51 | REPVR ---
PROCEDURE INFORMATION: Exam: US Pelvis Complete, Transabdominal Exam date and time: 06/29/2019 9:04 PM Age: 28 years old Clinical indication: Menstruation abnormalities; Irregular menstruation; Pelvic pain; Prior surgery; Surgery date: <1 month; Surgery type: D &c; Additional info: Recent stillborn vag del. + dnc, incr. Bleeding/pain TECHNIQUE: Imaging protocol: Real-time transabdominal pelvic ultrasound with image documentation. Complete exam. COMPARISON: Obs. Limited, DAE US 06/15/2019 6:41 PM FINDINGS: Gestation: No intrauterine gestational sac or formed parts. Uterus/cervix: The endometrium is thickened and heterogeneous measuring up to 1.8 cm thick. Some fluid and nonspecific tissue is present in the endometrium. Right adnexa: Right ovary has been removed. Left adnexa: Left ovary is unremarkable. Free fluid: No free fluid. No hydrosalpinx. Bladder: Normal. Vasculature: No internal vascularity is seen. IMPRESSION: Thickened heterogeneous endometrium, likely due to blood clot. No endometrial vascularity to suggest retained products of conception. Electronically signed by: Patrick Hanson On 06/29/2019 21:51:12 PM
[2019-06-29 22:17] VITALS: BP 134/72
== END 2019-06-29 22:18 | disposition home or self-care (01) ==
LOC: M ED 18:33
DX: N93.9 Abnormal uterine and vaginal bleeding, unspecified (principal); J45.909 Unspecified asthma, uncomplicated; Z87.59 Personal history of other complications of pregnancy, childbirth and the puerperium; Z88.0 Allergy status to penicillin; Z90.721 Acquired absence of ovaries, unilateral

== ENCOUNTER 2019-07-11 08:30 | Emergency (ER) | payer OTHER ==
[~2019-07-11] VITALS: Ht 172.7 cm; Wt 65.9 kg
[~2019-07-11 08:30] MED LIST changes: +[UNRECOGNIZED DRUG - REMARK]
[2019-07-11] MEDS ORDERED: ASPI81TA85 PO (08:40)
[2019-07-11 10:14] LABS: HEMATOCRIT 37.9 % (36.0-47.0); HEMOGLOBIN 11.7 g/dl (12.0-15.5); MEAN CORPUSCULAR HEMOGLOBIN 27.9 pg (27.0-33.0); MEAN CORPUSCULAR HGB CONC 30.9 g/dl (32.0-36.5); MEAN CORPUSCULAR VOLUME 90.2 fl (80.0-96.0); PLATELET COUNT, AUTOMATED 376 10^3/uL (150-450); WHITE BLOOD COUNT 4.2 10^3/uL (4.0-10.0)
--- NOTE | 2019-07-11 10:50 | REP ---
Clinical: Right upper extremity pain and swelling. Technique: Real time paula scale and color Doppler evaluation using linear high frequency transducer. Findings: Real time paula scale and color Doppler evaluation of the right upper extremity venous structures including jugular, subclavian, axillary, brachial, cephalic, and basilic veins demonstrates normal flow characteristics. There is no evidence for venous thrombosis. Further evaluation at the level of the right wrist demonstrates thrombosed superficial veins suggesting the possibility of focal thrombophlebitis. Impression: 1. No evidence for deep venous thrombosis to the right upper extremity. 2. Possible thrombophlebitis at the wrist. Electronically Signed by Norm Gottlieb MD 07/11/2019 10:42 A
[2019-07-11 10:55] VITALS: BP 116/80
== END 2019-07-11 11:21 | disposition home or self-care (01) ==
LOC: M ED 08:30
DX: I80.8 Phlebitis and thrombophlebitis of other sites (principal); J45.909 Unspecified asthma, uncomplicated; Z79.82 Long term (current) use of aspirin; Z79.899 Other long term (current) drug therapy; Z87.59 Personal history of other complications of pregnancy, childbirth and the puerperium; Z88.0 Allergy status to penicillin; Z90.721 Acquired absence of ovaries, unilateral

== ENCOUNTER → 2019-07-14 | Outpatient (REF) | payer OTHER ==
[~2019-07-14] MED LIST changes: +ASPI81TA85 PO
== END ==
LOC: M SFHCLERA 16:32
PROVIDERS: ATTEND Physician Assistant
DX: R50.9 Fever, unspecified (principal)